=== PATIENT | male | born 1975 | race Two or more races ===

== ENCOUNTER 2025-01-03 03:03 | Inpatient (IN) | payer OTHER ==
[~2025-01-03] VITALS: Ht 193 cm; Wt 108.5 kg
[2025-01-03 04:02] LABS: Urine Bacteria None Seen /hpf (None Seen)
[2025-01-03 04:10] LABS: Urine Blood 1+ /uL (Negative); Urine Clarity Clear (Clear); Urine Color Light-Yellow (Yellow); Urine Protein, UAD Negative (Negative); Urine Specific Gravity 1.013 (1.001-1.035); Urine Squamous Epithelial Cell None Seen /hpf (<5); Urine Urobilinogen Normal (Negative); Urine WBC 1 /HPF (0-3); Urine pH 5.5 (5.0-9.0)
[2025-01-03 04:23] LABS: Chloride 105 mmol/L (98-107); Sodium 138 mmol/L (136-145)
[2025-01-03 04:24] LABS: Anion Gap 9 (5-15); Calcium 9.2 mg/dL (8.7-10.4); Carbon Dioxide 24 mmol/L (20-31)
[2025-01-03 04:29] LABS: Blood Urea Nitrogen 13 mg/dL (9-23)
[2025-01-03] MEDS: ONDANSETRON HCL 4 MG/2 ML VIAL IV ONE ×2 (04:30→14:30)
[2025-01-03 04:39] LABS: Hematocrit 43.5 % (41.0-53.0); Hemoglobin 15.2 g/dL (13.5-17.5); Mean Corpuscular Hemoglobin 29.8 pg (28.0-32.0); Mean Corpuscular Hgb Conc. 34.8 g/dL (32.0-36.0); Mean Corpuscular Volume 85.7 fL (80.0-100.0); Platelet Count (auto) 111 10^3/uL (140-450); Red Blood Cells 5.08 10^6/uL (4.5-5.90); Red Cell Distribution Width 12.7 % (11.8-14.3); White Blood Cell 5.3 10^3/uL (4.4-10.8)
[2025-01-03 04:42] LABS: Basophils % (manual) 0 (0.0-2.0); Blast Cells 0; Eosinophils % (manual) 0 (0-7); Glucose 119 mg/dL (74-106); Metamyelocytes % 0; Monocytes % (manual) 0 (0-12); Myelocytes % 0; Promyelocytes % 0; Reactive Lymphocytes 0
--- NOTE | 2025-01-03 04:43 | ED.PDOC ---
History of Present Illness HPI Comments 49-year-old male presents with for complaint abdominal pain, with associated 1 episode of nausea and vomiting. Patient is a poor historian. He endorses on having pain since yesterday, localized to his upper and right lower quadrant area, and describes it as tight in quality. Patient states on taking ibuprofen and vomiting it, immediately, afterwards prior to arrival. Also endorses on taking a recent would Wegovy injection 4-5 days ago. He denies having any bloody vomitus, diarrhea, constipation, urinary symptoms, fever, chills, further associated symptoms. Chief Complaint: Abdominal Pain Time Seen by MD: 04:25 Reviewed Notes: Nurses Notes, Medications, Allergies Allergies: Coded Allergies: NO KNOWN ALLERGIES (Unverified , 01/03/25) Information Source: Patient, Spouse Mode of Arrival: Ambulatory Severity: Moderate Timing: Days Duration: Since onset Prehospital treatment: None Past Medical History PAST MEDICAL HISTORY: Denies Surgical History: Denies all surgeries Family History Family History: Unknown Social History Smoker: Non-Smoker Alcohol: Denies ETOH Use Drugs: Denies Drug Use Lives In: Home All Other Systems: Reviewed and Negative (Comprehensive review of systems are negative unless otherwise stated in HPI) Physical Exam General Appearance: No Apparent Distress, Normal, Other (Uncomfortable appearing) HEENT: Normal ENT Inspection, Pharynx Normal, TMs Normal Neck: Full Range of Motion, Non-Tender, Normal, Normal Inspection Respiratory: Chest Non-Tender, Lungs Clear, No Accessory Muscle Use, No Respiratory Distress, Normal Breath Sounds Cardiovascular: No Edema, No JVD, No Murmur, No Gallop, Normal Peripheral Pulses, Regular Rate/Rhythm Breast Exam: Deferred Gastrointestinal: No Organomegaly, Non Tender, No Pulsatile Mass, Normal Bowel Sounds, Soft Genitalia: Deferred Pelvic: Deferred Rectal: Deferred Extremities: No calf tenderness, Normal capillary refill, Normal inspection, Normal range of motion, Non-tender, No pedal edema Musculoskeletal : Apperance: Normal Neurologic: Alert, obstetrical tech II-XII nml as Tested, No Motor Deficits, Normal Affect, Normal Mood, No Sensory Deficits Cerebellar Function: Normal Reflexes: Normal Skin: Dry, Normal Color, Warm Lymphatic: No Adenopathy Was a procedure done? Was a procedure done?: No Differential Dx Considerations may include: Gastritis, gastroenteritis, GERD, PUD, appendicitis, diverticulitis, PID, nephrolithiasis, cystitis, viral syndrome, medication adverse effect, among others X-Ray, Labs, Meds, VS Vital Signs Date Time Temp Pulse Resp B/P (MAP) Pulse Ox O2 Delivery O2 Flow Rate FiO2 01/03/25 03:16 99.3 117 16 114/75 (88) 96 99.3 Lab Test 01/03/25 04:04 01/03/25 03:16 Range/Units White Blood Count 5.3 4.4-10.8 10^3/uL Red Blood Count 5.08 4.5-5.90 10^6/uL Hemoglobin 15.2 13.5-17.5 g/dL Hematocrit 43.5 41.0-53.0 % Mean Corpuscular Volume 85.7 80.0-100.0 fL Mean Corpuscular Hemoglobin 29.8 28.0-32.0 pg Mean Corpuscular Hemoglobin Concent 34.8 32.0-36.0 g/dL Red Cell Distribution Width 12.7 11.8-14.3 % Platelet Count 111 L 140-450 10^3/uL Mean Platelet Volume 7.8 6.9-10.8 fL Neutrophils (%) (Auto) 37.0-80.0 % Lymphocytes (%) (Auto) 10.0-50.0 % Monocytes (%) (Auto) 0.0-12.0 % Basophils (%) (Auto) 0.0-2.0 % Neutrophils # (Auto) 1.6-8.6 10 ^3/uL Lymphocytes # (Auto) 0.4-5.4 10 ^3/uL Monocytes # (Auto) 0-1.3 10 ^3/uL Differential Total Cells Counted 100.0 100 Neutrophils % (Manual) 93 H 37.0-80.0 Band Neutrophils % (Manual) 2 Lymphocytes % (Manual) 5 L 10.0-50.0 Monocytes % (Manual) 0 0-12 Eosinophils % (Manual) 0 0-7 Basophils % (Manual) 0 0.0-2.0 Metamyelocytes % (manual) 0 Myelocytes % (Manual) 0 Promyelocytes % (Manual) 0 Blast Cells % (Manual) 0 Reactive Lymphocytes 0 Platelet Estimate Decreased Large Platelets Few Sodium Level 138 136-145 mmol/L Potassium Level 4.0 3.5-5.1 mmol/L Chloride Level 105 98-107 mmol/L Carbon Dioxide Level 24 20-31 mmol/L Anion Gap 9 5-15 Blood Urea Nitrogen 13 9-23 mg/dL Creatinine 1.18 0.700-1.30 mg/dL Glomerular Filtration Rate Calc 75 >90 mL/min BUN/Creatinine Ratio 11.0 10.0-20.0 Serum Glucose 119 H 74-106 mg/dL Calcium Level 9.2 8.7-10.4 mg/dL Urine Color Light-yellow Yellow Urine Clarity Clear Clear Urine pH 5.5 5.0-9.0 Urine Specific [place] 1.013 1.001-1.035 Urine Protein Negative Negative Urine Ketones Negative Negative Urine Blood 1+ H Negative /uL Urine Nitrite Negative Negative Urine Bilirubin Negative Negative Urine Urobilinogen Normal Negative mg/dL Urine Leukocyte Esterase Negative Negative /uL Urine RBC 1 0 - 3 /hpf Urine Microscopic WBC 1 0-3 /HPF Urine Squamous Epithelial Cells None seen <5 /hpf Urine Bacteria None seen None Seen /hpf Urine Glucose Normal Normal mg/dL Time of 1ST Reevaluation: 04:50 Reevaluation 1ST: Unchanged Patient Education/Counseling: Diagnosis, Treatment Family Education/Counseling: Diagnosis, Treatment Additional Information Previous visits reviewed: N/A The following tests were ordered, and results were reviewed by me: CT abdomen and pelvis with IV contrast, manual differential, UA, CBC, BNP Additional Information was gathered from interviewing the following independent historians: Spouse I reviewed and agreed with the following test results read by other providers: CT abdomen and pelvis with IV contrast I discussed treatment and results with medical personnel and: patient, spouse Departure 1 Departure Time of Disposition: 05:42 (Patient presented with abdominal pain that was concerning for possible appendicits, gastritis, cholecystitis, colitis, g astroenteritis, sbo, or orther possible surgical emergency. Data: 1. I ordered and reviewed the result of at least 3 labs including a CBC, BMP, and Urinalysis. 2. I independently interpreted the following tests: CT Abdoment and Pelvis is concerning for acute appendicitis.Risk:This patient has a high risk of morbidity due to further diagnostic testing or treatment and may suffer from an acute abdominal process disorder. Workup reveals acute appendicitis and patient should be admitted for further workup. and possible expert consultation. ) Impression: Primary Impression: Acute appendicitis Qualified Codes: K35.30 - Acute appendicitis with localized peritonitis, without perforation or gangrene Disposition: 09 ADMITTED INPATIENT Admit to: Med Surg Condition: Guarded Critical Care Note Critical Care Time?: Yes Critical care comment: Intractable abdominal pain Authorized and Performed by: Neal Degroot MD Total critical care time: Approximately 44 minutes Due to a high probability of clinically significant, life threatening deterioration, the patient required my highest level of preparedness to intervene emergently and I personally spent this critical care time directly and personally managing the patient. This critical care time included obtaining a history; examining the patient; pulse oximetry; ordering and review of studies; arranging urgent treatment with development of a management plan; evaluation of patient's response to treatment; frequent reassessment; and, discussions with other providers. This critical care time was performed to assess and manage the high probability of imminent, life-threatening deterioration that could result in multi-organ failure. It was exclusive of separately billable procedures and treating other patients and teaching time. Please see my other sections and the rest of the note for further information on patient assessment and treatment. Stability Stability form required: No Heart Score Heart Score: Heart Score Response (Comments) Value History N/A 0 EKG N/A 0 Age N/A 0 Risk Factors N/A 0 Troponin N/A 0 Total 0 I personally scribed for NEAL DEGROOT MD ([email or web address]) on 01/03/25 at 04:43. Electronically submitted by Tomi Rausch ([email or web address]). NEAL DEGROOT MD Jan 03, 2025 04:43
[2025-01-03 05:24] LABS: Band Neutrophils % (manual) 2; Large Platelets FEW; Lymphocytes % (manual) 5 (10.0-50.0); Platelet Estimate Decreased
--- NOTE | 2025-01-03 05:42 | DVH ---
EXAM: CT Abdomen and Pelvis With Intravenous Contrast CLINICAL INDICATION: rlq pain TECHNIQUE: Axial computed tomography images of the abdomen and pelvis with intravenous contrast. Th is CT exam was performed using one or more of the following dose reduction techniques: automated exp osure control, adjustment of the mA and/or kV according to patient size, and/or use of iterative zbigniew nstruction technique. CONTRAST: RADIATION DOSE: CTDIvol = 20.19 mGy, DLP = 1396.96 mGy-cm COMPARISON: None FINDINGS: LUNG BASES: Unremarkable. No mass. No consolidation. ABDOMEN: LIVER: Hepatomegaly with fatty infiltration. GALLBLADDER AND BILE DUCTS: Unremarkable. No calcified stones. No ductal dilation. PANCREAS: Unremarkable. No mass. No ductal dilation. SPLEEN: Unremarkable. No splenomegaly. ADRENALS: Unremarkable. No mass. KIDNEYS AND URETERS: Unremarkable. No solid mass. No hydronephrosis. STOMACH AND BOWEL: Unremarkable. No obstruction. No mucosal thickening. PELVIS: APPENDIX: Mucosal thickening in the appendix with surrounding inflammation. Appendix measures 1.5 cm in diameter. BLADDER: Unremarkable. No mass. REPRODUCTIVE: Unremarkable as visualized. ABDOMEN and PELVIS: INTRAPERITONEAL SPACE: Unremarkable. No free air. No significant fluid collection. BONES/JOINTS: No acute fracture. No dislocation. SOFT TISSUES: Unremarkable. VASCULATURE: Unremarkable. No abdominal aortic aneurysm. LYMPH NODES: Unremarkable. No enlarged lymph nodes. OTHER FINDINGS: . . IMPRESSION: 1. Mucosal thickening in the appendix with surrounding inflammation. Appendix measures 1.5 cm in di ameter. Findings are consistent with acute appendicitis. No rupture. 2. Hepatomegaly with fatty infiltration. Findings were discussed with Dr. Rivers by phone on 01/30/2025 at 3:40 p.m..
[2025-01-03] MEDS: SODIUM CHLORIDE 0.9% 1,000 ML IV ONE ×3 (06:49→09:33)
[2025-01-03] MEDS: IOHEXOL 300 MG/ML 100ML BOTTLE IJ ONE (06:50)
[2025-01-03 07:35] VITALS: PULSE 102; RESP 14; O2SAT 96
[2025-01-03] MEDS ORDERED: DOCUSATE SOD 100 MG CAP PO PRN (08:00)
[2025-01-03] MEDS ORDERED: ONDANSETRON HCL 4 MG/2 ML VIAL IV PRN (08:00)
[2025-01-03] MEDS ORDERED: HYDROcodone-ACET 5/325MG TAB PO PRN (08:00)
[2025-01-03] MEDS ORDERED: ACETAMINOPHEN 325 MG TAB PO PRN ×2 (08:00→08:15)
[2025-01-03] MEDS ORDERED: MORPHINE SULFATE INJ 2 MG/ml SYRG IV PRN ×2 (08:00→08:15)
[2025-01-03] MEDS ORDERED: TADA5TAB16 PO (08:05)
[2025-01-03] MEDS ORDERED: SEMA1.7I SC (08:05)
--- NOTE | 2025-01-03 08:07 | DVHHP2 ---
History of Present Illness Reason for Visit: Abdominal pain History of Present Illness Alonzo Grace is a [id number] with no significant past medical history, who came in for abdominal pain. Patient states his abdominal pain began yesterday, and he thought it would go away. Then this morning about 0200 he was awoken with severe RLQ pain, fever, chills, and vomited. States he vomited when walking to his car to come to the hospital. States he last ate yesterday about 2022. Past Surgical History: Total knee replacement (left) Smoke: No ALCOHOL: none Drugs: None Lives: with Family Domestic Violence: Neg Review of Systems Constitutional: Yes: Fever, Chills; No: Sweats, Weakness, Malaise, Other Eyes: No: Pain, Vision change, Conjunctivae inflammation, Eyelid inflammation, Other, Redness ENT: No: Ear pain, Ear discharge, Nose pain, Nose discharge, Nose congestion, Mouth pain, Mouth swelling, Throat pain, Throat swelling, Other Respiratory: No: Cough, Dry, Shortness of breath, SOB with excertion, Wheezing, Hemoptysis, Pleuritic Pain, Sputum, Wheezing, Other Cardiovascular: No: Chest Pain, Palpitations, Orthopnea, Paroxysmal Noc. Dyspnea, Edema, Lt Headedness, Other Gastrointestinal: Nausea, Vomiting, Abdominal Pain (RLQ); No: Diarrhea, Constipation, Melena, Hematochezia, Other Genitourinary: No Dysuria, No Frequency, No Incontinence, No Hematuria, No Retention, No Other Musculoskeletal: No: other, neck pain, shoulder pain, arm pain, back pain, hand pain, leg pain, foot pain Skin: No: Rash, Lesions, Jaundice, Bruising, Other Neurological: No: Weakness, Numbness, Incoordination, Change in speech, Confusion, Seizures, Other Allergies: Coded Allergies: NO KNOWN ALLERGIES (Unverified , 01/03/25) Medications Current Medications Medications Dose Ordered Sig/Rachel Route Start Time Stop Time Status Last Admin Dose Admin Acetaminophen/ Hydrocodone Bitart 1 tab Q4HP PRN PO 01/03/25 08:00 UNV Ondansetron HCl 4 mg Q4HP PRN IV 01/03/25 08:00 UNV Docusate Sodium 100 mg BIDPRN PRN PO 01/03/25 08:00 UNV Acetaminophen 650 mg Q6HP PRN PO 01/03/25 08:00 UNV Morphine Sulfate 2 mg Q4HPRN PRN IV 01/03/25 08:00 UNV Metronidazole 100 ml @ 100 mls/hr Q8HR IV 01/03/25 14:00 UNV Cefazolin Sodium 50 ml @ 100 mls/hr Q8HR IV 01/03/25 14:00 UNV Exam Vital Signs Vital Signs Date Time Temp Pulse Resp B/P (MAP) Pulse Ox O2 Delivery O2 Flow Rate FiO2 01/03/25 06:40 97.8 122 20 94/59 (71) 98 97.8 01/03/25 06:40 Room Air General Appearance: Alert, Oriented X3, Cooperative, mild distress HEENT: Atraumatic, PERRLA Respiratory: Clear to auscultation, Normal air movement Cardiovascular: Normal S1, Normal S2, Other (ST) Abdominal: Normal bowel sounds, Soft, Other (RLQ pain) Extremities: No clubbing, No cyanosis, No edema, Normal pulses, No tenderness/swelling Skin: No rashes, No breakdown, No significant lesion Neuro: Normal gait, Normal speech, Strength at 5/5 X4 ext, Normal tone Psych/Mental Status: Mental status NL, Mood NL Labs/Xrays Labs Test 01/03/25 04:04 01/03/25 03:16 Range/Units White Blood Count 5.3 4.4-10.8 10^3/uL Red Blood Count 5.08 4.5-5.90 10^6/uL Hemoglobin 15.2 13.5-17.5 g/dL Hematocrit 43.5 41.0-53.0 % Mean Corpuscular Volume 85.7 80.0-100.0 fL Mean Corpuscular Hemoglobin 29.8 28.0-32.0 pg Mean Corpuscular Hemoglobin Concent 34.8 32.0-36.0 g/dL Red Cell Distribution Width 12.7 11.8-14.3 % Platelet Count 111 L 140-450 10^3/uL Mean Platelet Volume 7.8 6.9-10.8 fL Neutrophils (%) (Auto) 37.0-80.0 % Lymphocytes (%) (Auto) 10.0-50.0 % Monocytes (%) (Auto) 0.0-12.0 % Basophils (%) (Auto) 0.0-2.0 % Neutrophils # (Auto) 1.6-8.6 10 ^3/uL Lymphocytes # (Auto) 0.4-5.4 10 ^3/uL Monocytes # (Auto) 0-1.3 10 ^3/uL Differential Total Cells Counted 100.0 100 Neutrophils % (Manual) 93 H 37.0-80.0 Band Neutrophils % (Manual) 2 Lymphocytes % (Manual) 5 L 10.0-50.0 Monocytes % (Manual) 0 0-12 Eosinophils % (Manual) 0 0-7 Basophils % (Manual) 0 0.0-2.0 Metamyelocytes % (manual) 0 Myelocytes % (Manual) 0 Promyelocytes % (Manual) 0 Blast Cells % (Manual) 0 Reactive Lymphocytes 0 Platelet Estimate Decreased Large Platelets Few Sodium Level 138 136-145 mmol/L Potassium Level 4.0 3.5-5.1 mmol/L Chloride Level 105 98-107 mmol/L Carbon Dioxide Level 24 20-31 mmol/L Anion Gap 9 5-15 Blood Urea Nitrogen 13 9-23 mg/dL Creatinine 1.18 0.700-1.30 mg/dL Glomerular Filtration Rate Calc 75 >90 mL/min BUN/Creatinine Ratio 11.0 10.0-20.0 Serum Glucose 119 H 74-106 mg/dL Calcium Level 9.2 8.7-10.4 mg/dL Urine Color Light-yellow Yellow Urine Clarity Clear Clear Urine pH 5.5 5.0-9.0 Urine Specific [place] 1.013 1.001-1.035 Urine Protein Negative Negative Urine Ketones Negative Negative Urine Blood 1+ H Negative /uL Urine Nitrite Negative Negative Urine Bilirubin Negative Negative Urine Urobilinogen Normal Negative mg/dL Urine Leukocyte Esterase Negative Negative /uL Urine RBC 1 0 - 3 /hpf Urine Microscopic WBC 1 0-3 /HPF Urine Squamous Epithelial Cells None seen <5 /hpf Urine Bacteria None seen None Seen /hpf Urine Glucose Normal Normal mg/dL EXAM: XY CHEST TWO VIEWS ROUTINE FINDINGS: Lines and Tubes: None Lungs: No focal consolidation. Pleura: No effusion. No pneumothorax. Cardiomediastinal contours: Unremarkable Bones: No acute osseous abnormality. IMPRESSION: No acute cardiopulmonary disease. EXAM: CT Abdomen and Pelvis With Intravenous Contrast FINDINGS: LUNG BASES: Unremarkable. No mass. No consolidation. ABDOMEN: LIVER: Hepatomegaly with fatty infiltration. GALLBLADDER AND BILE DUCTS: Unremarkable. No calcified stones. No ductal dilation. PANCREAS: Unremarkable. No mass. No ductal dilation. SPLEEN: Unremarkable. No splenomegaly. ADRENALS: Unremarkable. No mass. KIDNEYS AND URETERS: Unremarkable. No solid mass. No hydronephrosis. STOMACH AND BOWEL: Unremarkable. No obstruction. No mucosal thickening. PELVIS: APPENDIX: Mucosal thickening in the appendix with surrounding inflammation. Appendix measures 1.5 cm in diameter. BLADDER: Unremarkable. No mass. REPRODUCTIVE: Unremarkable as visualized. ABDOMEN and PELVIS: INTRAPERITONEAL SPACE: Unremarkable. No free air. No significant fluid collection. BONES/JOINTS: No acute fracture. No dislocation. SOFT TISSUES: Unremarkable. VASCULATURE: Unremarkable. No abdominal aortic aneurysm. LYMPH NODES: Unremarkable. No enlarged lymph nodes. OTHER FINDINGS: . . IMPRESSION: 1. Mucosal thickening in the appendix with surrounding inflammation. Appendix measures 1.5 cm in diameter. Findings are consistent with acute appendicitis. No rupture. 2. Hepatomegaly with fatty infiltration. Assessment/Plan Assessment/Plan Assessment: Acute appendicitis, SIRS, Hyperglycemia, Plan: Admit to Med-Surg, Surgical consult, NPO, Chest X-ray, PT/PTT, IV hydration, IV antibiotics, EKG, Plan discussed with: Patient, Spouse My Orders Orders - JOSE ALEJANDRO WATTERS Procedure Category Date Status Time * Surgical Consult CONS 01/03/25 Transmitted 07:59 Admit ADMIT 01/03/25 Transmitted 07:59 Code Status CODE 01/03/25 Transmitted 07:59 Hydrocodone-Acet PHA 01/03/25 Logged 5/325mg Tab ([place] 08:00 Ondansetron Hcl PHA 01/03/25 Logged (Zofran) 08:00 Docusate Sodium PHA 01/03/25 Logged Capsule ([place] 08:00 Complete Blood Count LAB 01/04/25 Verified 04:00 Comprehensive LAB 01/04/25 Verified Metabolic Panel 04:00 Npo (Nothing By DIET 01/03/25 Transmitted Mouth) Diet Breakfast Condition: Critical YOSELIN 01/03/25 In Process 07:59 Acetaminophen Tablet PHA 01/03/25 Logged (Tylenol Tablet) 08:00 Morphine Sulfate PHA 01/03/25 Logged Injection 08:00 PTPTT LAB 01/03/25 Logged 07:59 Chest Two Views XY 01/03/25 Logged Routine 07:59 Electrocardigram EKG 01/03/25 Logged 07:59 Metronidazole PHA 01/03/25 Logged 500mg/100ml (Flagyl 14:00 Cefazolin 1gm/50ml PHA 01/03/25 Logged (Ancef) 14:00 Sodium Chloride 0.9% PHA 01/03/25 Logged 08:15 Date of Service: Jan 03, 2025 Billing Provider: JOSE ALEJANDRO WATTERS Common Visit Codes: [id number] INP/OBS CARE (MOD) JOSE ALEJANDRO WATTERS Jan 03, 2025 08:07
[2025-01-03] MEDS ORDERED: SODIUM CHLORIDE 0.9% 1,000 ML IV ONE (08:15)
[2025-01-03 08:27] LABS: INR 1.06 (0.9-1.15); Partial Thromboplastin Time 22.8 SEC (24.5-34.5); Prothrombin Time 11.2 sec (9.3-11.8)
--- NOTE | 2025-01-03 08:39 | DVH ---
EXAM: XY CHEST TWO VIEWS ROUTINE CLINICAL HISTORY: pain COMPARISON: None TECHNIQUE: Frontal and lateral view of the chest was obtained FINDINGS: Lines and Tubes: None Lungs: No focal consolidation. Pleura: No effusion. No pneumothorax. Cardiomediastinal contours: Unremarkable Bones: No acute osseous abnormality. IMPRESSION: No acute cardiopulmonary disease.
[2025-01-03] MEDS: metroNIDAZOLE 500MG/100ML 100 ML IV ONE ×2 (08:58→14:40)
[2025-01-03] MEDS: MORPHINE SULFATE 4 MG/ML SYR/VIAL IV ONE ×2 (10:44)
[2025-01-03] MEDS: ceFAZolin 2 GM/D5W50ml 50 ML IV ONE ×2 (10:45→14:17)
--- NOTE | 2025-01-03 13:12 | DVHPN2 ---
Subjective Patient was NPO, right lower quadrant pain continues. Reviewed: H&P Changes from previous H/P or p: No Changes General: Per HPI Eyes: No Pain, No Vision change, No Conjunctivae inflammation, No Eyelid inflammation, No Other, No Redness ENT: No Ear pain, No Ear discharge, No Nose pain, No Nose discharge, No Nose congestion, No Mouth pain, No Mouth swelling, No Throat pain, No Throat swelling, No Other Cardiovascular: No Chest Pain, No Palpitations, No Orthopnea, No Paroxysmal Noc. Dyspnea, No Edema, No Lt Headedness, No Other Respiratory: No Cough, No Dry, No Shortness of breath, No SOB with excertion, No Wheezing, No Hemoptysis, No Pleuritic Pain, No Sputum, No Other Gastrointestinal: Nausea, Vomiting, Abdominal Pain (RLQ); No Diarrhea, No Constipation, No Melena, No Hematochezia, No Other Genitourinary: No Dysuria, No Frequency, No Incontinence, No Hematuria, No Retention, No Other Musculoskeletal: No other, No neck pain, No shoulder pain, No arm pain, No back pain, No hand pain, No leg pain, No foot pain Skin: No Rash, No Lesions, No Jaundice, No Bruising, No Other Objective Vitals Vital Signs Date Time Temp Pulse Resp B/P (MAP) Pulse Ox O2 Delivery O2 Flow Rate FiO2 01/03/25 12:02 98.8 100 21 99/57 (71) 96 98.8 01/03/25 07:35 Room Air* 0 21 Exam GEN: Healthy appearing, well-developed, NAD. HEENT: NC/AT; MMM. CV: RRR, no m/r/g. LUNGS: CTAB, no w/r/c. ABD: Tender to palpation epigastrium and right lower quadrant, hypoactive/absent bowel sounds. EXT: skin Warm, well perfused. no rashes. No clubbing, cyanosis, or edema. NEURO: Ambulating with no limitations. No focal deficits. Medications Current Medications Medications Dose Ordered Sig/Rachel Route Start Time Stop Time Status Last Admin Dose Admin Ondansetron HCl 4 mg Q4HP PRN IV 01/03/25 08:15 Morphine Sulfate 2 mg Q4HPRN PRN IV 01/03/25 08:15 Metronidazole 100 ml @ 100 mls/hr Q8HR IV 01/03/25 14:00 Cefazolin Sodium 50 ml @ 100 mls/hr Q8HR IV 01/03/25 14:00 Acetaminophen/ Hydrocodone Bitart 1 tab Q4HP PRN PO 01/03/25 08:15 Docusate Sodium 100 mg BIDPRN PRN PO 01/03/25 08:15 Acetaminophen 650 mg Q6HP PRN PO 01/03/25 08:15 Laboratory Results Laboratory Tests 01/03/25 04:04 Chemistry Test 01/03/25 04:04 Calcium Level 9.2 mg/dL (8.7-10.4) Coagulation Test 01/03/25 04:04 Prothrombin Time 11.2 sec (9.3-11.8) Prothrombin Time INR 1.06 (0.9-1.15) Activated Partial Thromboplast Time 22.8 SEC (24.5-34.5) L Urinalysis Test 01/03/25 03:16 Urine Color Light-yellow (Yellow) Urine Clarity Clear (Clear) Urine pH 5.5 (5.0-9.0) Urine Specific [place] 1.013 (1.001-1.035) Urine Protein Negative (Negative) Urine Ketones Negative (Negative) Urine Blood 1+ /uL (Negative) H Urine Nitrite Negative (Negative) Urine Bilirubin Negative (Negative) Urine Urobilinogen Normal mg/dL (Negative) Urine Leukocyte Esterase Negative /uL (Negative) Urine RBC 1 /hpf (0 - 3) Urine Microscopic WBC 1 /HPF (0-3) Urine Squamous Epithelial Cells None seen /hpf (<5) Urine Bacteria None seen /hpf (None Seen) Urine Glucose Normal mg/dL (Normal) Labs and/or images reviewed: Labs reviewed by me, Image(s) reviewed by me Assessment/Plan Assessment/Plan Patient drove down to in an prior yesterday. On upon driving back he has worsening abdominal pain with chills. Abdominal pain was epigastric radiating to right lower quadrant. He tried to go to sleep but the abdominal pain woke him up. On his way to ER he had large volume emesis. Nonbloody nonbilious. On exam he has tenderness with absent bowel sounds. Tenderness more right lower quadrant than epigastrium. CT abdomen pelvis showing signs of appendicitis. Surgery consulted. Started on IV antibiotics Ancef. NPO. sepsis due to below acute appendicitis Hepatomegaly with fatty infiltration neutrophilia tachycardia tachypnea - in ancef/ metronidazole - npo - surgical eval - surgery aware. - ivf for maintainance NPO dvt ppx - scd , padau low gi ppx - ppi iv qday tele full code Plan discussed with: Patient Date of Service: Jan 03, 2025 Billing Provider: DESHAWN DIETZ MD Common Visit Codes: [id number] INP/OBS CARE(HIGH) DESHAWN DIETZ MD Jan 03, 2025 13:12
--- NOTE | 2025-01-03 13:29 | DVHINCON2 ---
Consultation - Surgical Date Seen: Jan 03, 2025 Referring Physician Referring Physician ER Reason for Consultation APPENDICITIS History of Present Illness History of Present Illness 49m w 1d h/o migratory rlq sunshine, nausea and anorexia. +fevers and chills Past Medical/Surgical History Past Medical/Surgical History PMHx none Surg Hx no abd surg Family and Social History Family and Social History noncontributory family no drugs alcohol or tob Allergies and medications Allergies: Coded Allergies: NO KNOWN ALLERGIES (Unverified , 01/03/25) Home Meds Reported Medications Semaglutide (Wegovy) 1.7 Mg/0.75 Ml Inj, 1.7 MG SC QWEEKLY 01/03/25 Tadalafil (Tadalafil) 5 Mg Tab, 1 TAB PO DAILY 01/03/25 Review of systems Review of Systems: HEENT:Normal, CVS:Normal, RESPIRATORY:Normal, GI:Abnormal (abd pain, nausea), :Normal, MSK:Normal, NEURO:Normal Examination Vital signs Vital Signs Date Time Temp Pulse Resp B/P (MAP) Pulse Ox O2 Delivery O2 Flow Rate FiO2 01/03/25 12:02 98.8 100 21 99/57 (71) 96 98.8 01/03/25 07:35 Room Air* 0 21 Medications Current Medications Medications (Trade) Dose Ordered Sig/Rachel Route PRN Reason Start Time Stop Time Status Last Admin Acetaminophen/ Hydrocodone Bitart ([place] 5/325MG Tab) 1 tab Q4HP PRN PO MODERATE PAIN (4-6 PAIN SCALE) 01/03/25 08:00 01/03/25 08:19 DC Ondansetron HCl (Zofran) 4 mg Q4HP PRN IV NAUSEA / VOMITING 01/03/25 08:00 01/03/25 08:19 DC Docusate Sodium (Colace Capsule) 100 mg BIDPRN PRN PO FOR CONSTIPATION 01/03/25 08:00 01/03/25 08:19 DC Acetaminophen (Tylenol Tablet) 650 mg Q6HP PRN PO PAIN SCALE 1-3 OR TEMP>100.4 01/03/25 08:00 01/03/25 08:19 DC Morphine Sulfate 2 mg Q4HPRN PRN IV SEVERE PAIN (7-10 PAIN SCALE) 01/03/25 08:00 01/03/25 08:19 DC Metronidazole 100 ml @ 100 mls/hr Q8HR IV 01/03/25 14:00 01/03/25 08:19 DC Cefazolin Sodium 50 ml @ 100 mls/hr Q8HR IV 01/03/25 14:00 01/03/25 08:19 DC Ondansetron HCl (Zofran) 4 mg Q4HP PRN IV NAUSEA / VOMITING 01/03/25 08:15 Morphine Sulfate 2 mg Q4HPRN PRN IV SEVERE PAIN (7-10 PAIN SCALE) 01/03/25 08:15 Metronidazole 100 ml @ 100 mls/hr Q8HR IV 01/03/25 14:00 Cefazolin Sodium 50 ml @ 100 mls/hr Q8HR IV 01/03/25 14:00 Acetaminophen/ Hydrocodone Bitart ([place] 5/325MG Tab) 1 tab Q4HP PRN PO MODERATE PAIN (4-6 PAIN SCALE) 01/03/25 08:15 Docusate Sodium (Colace Capsule) 100 mg BIDPRN PRN PO FOR CONSTIPATION 01/03/25 08:15 Acetaminophen (Tylenol Tablet) 650 mg Q6HP PRN PO PAIN SCALE 1-3 OR TEMP>100.4 01/03/25 08:15 Laboratory Labs Test 01/03/25 04:04 01/03/25 03:16 Range/Units White Blood Count 5.3 4.4-10.8 10^3/uL Red Blood Count 5.08 4.5-5.90 10^6/uL Hemoglobin 15.2 13.5-17.5 g/dL Hematocrit 43.5 41.0-53.0 % Mean Corpuscular Volume 85.7 80.0-100.0 fL Mean Corpuscular Hemoglobin 29.8 28.0-32.0 pg Mean Corpuscular Hemoglobin Concent 34.8 32.0-36.0 g/dL Red Cell Distribution Width 12.7 11.8-14.3 % Platelet Count 111 L 140-450 10^3/uL Mean Platelet Volume 7.8 6.9-10.8 fL Neutrophils (%) (Auto) 37.0-80.0 % Lymphocytes (%) (Auto) 10.0-50.0 % Monocytes (%) (Auto) 0.0-12.0 % Basophils (%) (Auto) 0.0-2.0 % Neutrophils # (Auto) 1.6-8.6 10 ^3/uL Lymphocytes # (Auto) 0.4-5.4 10 ^3/uL Monocytes # (Auto) 0-1.3 10 ^3/uL Differential Total Cells Counted 100.0 100 Neutrophils % (Manual) 93 H 37.0-80.0 Band Neutrophils % (Manual) 2 Lymphocytes % (Manual) 5 L 10.0-50.0 Monocytes % (Manual) 0 0-12 Eosinophils % (Manual) 0 0-7 Basophils % (Manual) 0 0.0-2.0 Metamyelocytes % (manual) 0 Myelocytes % (Manual) 0 Promyelocytes % (Manual) 0 Blast Cells % (Manual) 0 Reactive Lymphocytes 0 Platelet Estimate Decreased Large Platelets Few Prothrombin Time 11.2 9.3-11.8 sec Prothrombin Time INR 1.06 0.9-1.15 Activated Partial Thromboplast Time 22.8 L 24.5-34.5 SEC Sodium Level 138 136-145 mmol/L Potassium Level 4.0 3.5-5.1 mmol/L Chloride Level 105 98-107 mmol/L Carbon Dioxide Level 24 20-31 mmol/L Anion Gap 9 5-15 Blood Urea Nitrogen 13 9-23 mg/dL Creatinine 1.18 0.700-1.30 mg/dL Glomerular Filtration Rate Calc 75 >90 mL/min BUN/Creatinine Ratio 11.0 10.0-20.0 Serum Glucose 119 H 74-106 mg/dL Calcium Level 9.2 8.7-10.4 mg/dL Urine Color Light-yellow Yellow Urine Clarity Clear Clear Urine pH 5.5 5.0-9.0 Urine Specific [place] 1.013 1.001-1.035 Urine Protein Negative Negative Urine Ketones Negative Negative Urine Blood 1+ H Negative /uL Urine Nitrite Negative Negative Urine Bilirubin Negative Negative Urine Urobilinogen Normal Negative mg/dL Urine Leukocyte Esterase Negative Negative /uL Urine RBC 1 0 - 3 /hpf Urine Microscopic WBC 1 0-3 /HPF Urine Squamous Epithelial Cells None seen <5 /hpf Urine Bacteria None seen None Seen /hpf Urine Glucose Normal Normal mg/dL Examination: GENERAL:Normal, HEENT:Normal, NECK:Normal, LUNGS:Normal, CVS:Normal, ABDOMEN:Normal (rlq ttp, no be no guarding soft nd), MSK:Normal, SKIN:Normal, NEURO:Normal Problem List/Assessment/Plan Problems: (1) Acute appendicitis Assessment and Plan 49m w rlq abd pain nausea and anorexia acute appendicitis OR for lap appy npo abx analgesics prn vte ppx Plan discussed with Plan discussed with: Patient Visit Coding Surgery Date of Service if different f: Jan 03, 2025 Billing Provider: ZO CHANG MD Surgery Visit Codes: 50628 - INP CONSULT <55 MIN ZO CHANG MD Jan 03, 2025 13:29
[2025-01-03] MEDS ORDERED: ceFAZolin 1GM/50ML 50 ML IV SCH (14:00)
[2025-01-03] MEDS ORDERED: metroNIDAZOLE 500MG/100ML 100 ML IV SCH ×2 (14:00)
[2025-01-03] MEDS ORDERED: fentaNYL CITRATE 100 MCG/2 ML VL ONE (14:09)
[2025-01-03] MEDS ORDERED: MIDAZOLAM HCL 2MG/2ML 2ml VIAL (1mg/ml) ONE (14:09)
[2025-01-03] MEDS ORDERED: PROPOFOL 10 MG/ML 20 ML IV ONE (14:10)
[2025-01-03] MEDS: METOCLOPRAMIDE HCL 5MG/ml INJ 2ml VIAL IV ONE (14:30)
[2025-01-03] MEDS ORDERED: HYDROmorphone HCL 2 MG/ML VL/or syr IV PRN (14:30)
[2025-01-03] MEDS: KETOROLAC TROMETH 30 MG/ML 1ML VIAL IV ONE (14:30)
[2025-01-03] MEDS ORDERED: hydrALAZINE HCL 20 MG/ML VL IV PRN (14:30)
--- NOTE | 2025-01-03 14:30 | DVHPN2 ---
Progress Note Date Seen: Jan 03, 2025 Medical Necessity Reason Pt with a Central, PICC or Fol: No Objective vital signs Vital Sign Date Time Temp Pulse Resp B/P (MAP) Pulse Ox O2 Delivery O2 Flow Rate FiO2 01/03/25 12:02 98.8 100 21 99/57 (71) 96 98.8 01/03/25 07:35 Room Air* 0 21 medications Current Medications Medications Dose Ordered Sig/Rachel Route Start Time Stop Time Status Last Admin Dose Admin Ondansetron HCl 4 mg Q4HP PRN IV 01/03/25 08:15 Morphine Sulfate 2 mg Q4HPRN PRN IV 01/03/25 08:15 Metronidazole 100 ml @ 100 mls/hr Q8HR IV 01/03/25 14:00 Cefazolin Sodium 50 ml @ 100 mls/hr Q8HR IV 01/03/25 14:00 Acetaminophen/ Hydrocodone Bitart 1 tab Q4HP PRN PO 01/03/25 08:15 Docusate Sodium 100 mg BIDPRN PRN PO 01/03/25 08:15 Acetaminophen 650 mg Q6HP PRN PO 01/03/25 08:15 laboratory and microbiology Laboratory Tests 01/03/25 04:04 Test 01/03/25 04:04 Range/Units Serum Glucose 119 H 74-106 mg/dL Problem List/Assessment/Plan Problem List/Assessment/Plan 01/03/25 49 year old male with abdominal pain which started in epigastrium and migrated to right lower quadrant, now pain in right side, no appetite ,some nausea. has tender right lower quadrant with rebound tenderness. positive Rovsing and obturator signs elevated Neutrophil count, positive CT scan. will proceed with appendectomy, risks and complications and the procedure itself were explained to him and his son at bedside. Plan discussed with: Patient, Son RUTH SPRINGER MD Jan 03, 2025 14:30
[2025-01-03] MEDS ORDERED: ONDANSETRON HCL 4 MG/2 ML VIAL ONE (14:39)
[2025-01-03] MEDS ORDERED: SUGAMMADEX 200mg/2ml Vial (100MG/ML) IV ONE (14:48)
[2025-01-03] MEDS ORDERED: HYDROmorphone HCL 2 MG/ML VL/or syr ONE (14:49)
[2025-01-03] MEDS: BACITRACIN TOP OINT 1 UD PKG TOP ONE (14:52)
[2025-01-03] MEDS: POVIDONE IODINE 10 % TOPICAL OINT 30GM TOP ONE (14:54)
[2025-01-03 15:03] VITALS: O2SAT 100
--- NOTE | 2025-01-03 15:31 | DVHOP ---
DATE OF SURGERY: 01/03/2025 PREOPERATIVE DIAGNOSIS: Appendicitis. POSTOPERATIVE DIAGNOSIS: Appendicitis. SURGEON: Ho Cloud MD ANESTHESIA: General endotracheal, Valente Portillo. PROCEDURES: * Laparoscopy. * Laparoscopic appendectomy. DESCRIPTION OF PROCEDURE: Under adequate anesthesia with the patient's skin prepped and draped, supraumbilical incision was made and Veress needle inserted by the hanging drop technique in order to establish pneumoperitoneum to 15 mmHg pressure by insufflation with carbon dioxide. With the abdomen fully distended, the needle was removed and replaced with a 5 mm trocar port through which a 0-degree viewing laparoscope was inserted and under direct vision, additional 5 and 10 mm ports inserted through the abdominal wall at the mid abdomen and the suprapubic skin respectively. Instrumentation was introduced and laparoscopy was performed. There was no evidence of any unexpected pathology at the serosal surfaces visualized. The appendix was acutely inflamed. It was ante-cecum in position. It was placed on tension by grabbing it with a Regine forcep and lifting it into the anterior abdominal compartment. The appendix was traced to its confluence with the cecum. The base of the appendix at the confluence with the cecum was crossclamped and divided utilizing an Endo FREDA stapler equipped with vascular joni. The entire appendix and the mesoappendix thus being transected were removed from the peritoneal cavity by placement in a specimen extraction bag and removing the bag through the 10 mm port site. The right lower quadrant was then profusely irrigated. Irrigant was aspirated. Hemostasis was meticulously inspected and found to be complete. At the termination of procedure, there was no evidence of bleeding from either the port sites or from the appendectomy site. The instrumentation was withdrawn. Pneumoperitoneum was evacuated. Fascial defect was closed using 0 Vicryl. Metallic skin joni used for approximation of skin edges. The patient remained stable throughout the procedure, left the operating room following an accurate needle and sponge count. MD DONNY Ramos/LUNA TID: [id number] RECEIPT: [id number]
[2025-01-03] MEDS: D5W/SOD CHL 0.45%/KCL 20MEQ 1,000 ML IV SCH (15:57)
[2025-01-03] MEDS: ceFAZolin 1GM/50ML 50 ML IV SCH (16:13)
[2025-01-03 17:55] VITALS: PULSE 88; RESP 17; O2SAT 96
[2025-01-03 19:00] VITALS: BP 108/69; PULSE 17; TEMP 98.5; O2SAT 95
[2025-01-03 20:00] VITALS: PULSE 88; RESP 16
[2025-01-03] MEDS: HYDROcodone-ACET 5/325MG TAB PO PRN (20:37)
[2025-01-03 20:51] VITALS: BP 108/71; PULSE 16; TEMP 97; O2SAT 96
[2025-01-03] MEDS: ceFAZolin 2 GM/D5W50ml 50 ML IV SCH (23:13)
[2025-01-04] VITALS (7 sets, daily range): BP systolic 103–143; BP diastolic 62–95; PULSE 69–79; RESP 16–18; TEMP 97.4–98.7; O2SAT 96–98
[2025-01-04] MEDS: metroNIDAZOLE 500MG/100ML 100 ML IV SCH (00:19)
[2025-01-04] MEDS: ONDANSETRON HCL 4 MG/2 ML VIAL IV PRN (00:48)
[2025-01-04] MEDS: HYDROmorphone HCL 2 MG/ML VL/or syr IV ONE (00:51)
[2025-01-04 06:37] LABS: Alanine Aminotransferase 15 U/L (7-40); Alkaline Phosphatase 66 U/L (46-116); Anion Gap 9 (5-15); Blood Urea Nitrogen 12 mg/dL (9-23); Calcium 8.8 mg/dL (8.7-10.4); Carbon Dioxide 26 mmol/L (20-31); Chloride 105 mmol/L (98-107); Potassium 4.4 mmol/L (3.5-5.1); Sodium 140 mmol/L (136-145); Total Protein 6.1 g/dL (5.7-8.2)
[2025-01-04 06:38] LABS: Albumin 3.9 g/dL (3.2-4.8); Aspartate Aminotransferase 13 U/L (13-40)
[2025-01-04 06:42] LABS: Glucose 119 mg/dL (74-106)
[2025-01-04 06:43] LABS: Basophils # (auto) 0 10 ^3/uL (0-0.2); Basophils % (auto) 0.1 % (0.0-2.0); Eosinophils # (auto) 0 10 ^3/uL (0-0.8); Hematocrit 39.6 % (41.0-53.0); Hemoglobin 13.7 g/dL (13.5-17.5); Lymphocytes # (auto) 0.3 10 ^3/uL (0.4-5.4); Lymphocytes % (auto) 2.7 % (10.0-50.0); Mean Corpuscular Hemoglobin 29.8 pg (28.0-32.0); Mean Corpuscular Hgb Conc. 34.5 g/dL (32.0-36.0); Mean Corpuscular Volume 86.5 fL (80.0-100.0); Monocytes # (auto) 0.4 10 ^3/uL (0-1.3); Monocytes % (auto) 3.6 % (0.0-12.0); Neutrophils # (auto) 11.2 10 ^3/uL (1.6-8.6); Neutrophils % (auto) 93.6 % (37.0-80.0); Nucleated Red Blood Cells % 0.3 %; Platelet Count (auto) 105 10^3/uL (140-450); Red Blood Cells 4.58 10^6/uL (4.5-5.90); Red Cell Distribution Width 12.9 % (11.8-14.3)
--- NOTE | 2025-01-04 07:30 | ECG ---
[facility] Test Date: 2025-01-03 Test Time: 14:05:44 Pat Name: ELVIRA HOLLIDAY Department: ER Room: 0297 A Gender: M [employer]mal Cutting Machine Operator: JONEL : 1975 Requested By: JOSE ALEJANDRO WATTERS Order Number: [id number] Reading MD: Claudio Peñaloza Measurements Intervals [place] Rate: 99 P: 50 PA: 127 QRS: 56 QRSD: 110 T: 39 QT: 360 QTc: 462 Interpretive Statements Sinus rhythm Electronically Signed On 01-04-2025 14:59:11 PDT by Claudio Peñaloza Please click the below link to view image of tracing.
[2025-01-04] MEDS: cefTRIAXone 1GM/50ML D5W 50 ML IV ONE (11:31)
--- NOTE | 2025-01-04 14:29 | DVHPN2 ---
Subjective Date Seen: Jan 04, 2025 Post op day Post op day: 1 Patient reports: No new complaints Nursing reports: No new complaints General: Normal HNT: Normal Cardiovascular: Normal Respiratory: Normal Gastrointestinal: Normal Genitourinary: Normal Musculoskeletal: Normal Neurological: Normal Objective Vitals Vital Sign Date Time Temp Pulse Resp B/P (MAP) Pulse Ox O2 Delivery O2 Flow Rate FiO2 01/04/25 12:40 97.7 79 17 119/78 (92) 98 97.7 01/04/25 08:00 Room Air* 0 21 Total Intake and Output 01/03/25 01/03/25 01/04/25 15:00 23:00 07:00 Intake Total 150 ml 200 ml 125 ml Output Total 1425 ml Balance 150 ml 200 ml -1300 ml Medications Current Medications Medications Dose Ordered Sig/Rachel Route Start Time Stop Time Status Last Admin Dose Admin Ondansetron HCl 4 mg Q4HP PRN IV 01/03/25 08:15 01/04/25 00:48 4 MG Morphine Sulfate 2 mg Q4HPRN PRN IV 01/03/25 08:15 Acetaminophen/ Hydrocodone Bitart 1 tab Q4HP PRN PO 01/03/25 08:15 01/04/25 06:50 1 TAB Docusate Sodium 100 mg BIDPRN PRN PO 01/03/25 08:15 Acetaminophen 650 mg Q6HP PRN PO 01/03/25 08:15 Potassium Chloride/Dextrose/ Sod Cl 1,000 ml @ 120 mls/hr Q8H20M IV 01/03/25 15:00 01/03/25 23:20 120 MLS/HR Metronidazole 100 ml @ 100 mls/hr Q8HR IV 01/03/25 22:00 01/04/25 13:29 100 MLS/HR Ceftriaxone Sodium 50 ml @ 100 mls/hr DAILY@09 IV 01/05/25 09:00 General: Normal Head/Eyes: Normal ENT: Normal Neck: Normal Lungs: Normal Cardiovascular: Normal Abdominal: Normal, Soft Musculoskeletal: Normal Extremities: Normal Labs and Microbiology Laboratory Tests 01/04/25 05:45 Test 01/04/25 05:45 Range/Units Serum Glucose 119 H 74-106 mg/dL Ass/Plan Labs and/or images reviewed: Labs reviewed by me, Image(s) reviewed by me Problem List 6/3/25 49 year old male with abdominal pain which started in epigastrium and migrated to right lower quadrant, now pain in right side, no appetite ,some nausea. has tender right lower quadrant with rebound tenderness. positive Rovsing and obturator signs elevated Neutrophil count, positive CT scan. will proceed with appendectomy, risks and complications and the procedure itself were explained to him and his son at bedside. Problems(with codes): (1) Acute appendicitis Assessment/Plan no new complaints, abdomen soft, appropriately tender tolerating diet, labs ok , passing gas wound clean dry and intact Plan: clear for discharge with pain medication and antibiotics may shower in 72 hours follow up in surgery clinic in 7-10 days Prognosis: Good Plan discussed with patient, Dr. Cloud Visit Coding Surgery Date of Service if different f: Jan 04, 2025 Billing Provider: RUTH CLOUD MD Surgery Visit Codes: [id number] INP/OBS CARE(HIGH) LALITHA MACEDO NP Jan 04, 2025 14:29
--- NOTE | 2025-01-04 14:42 | DVHPN2 ---
Subjective s/p lap appy. improving. Reviewed: H&P Changes from previous H/P or p: No Changes General: Per HPI Eyes: No Pain, No Vision change, No Conjunctivae inflammation, No Eyelid inflammation, No Other, No Redness ENT: No Ear pain, No Ear discharge, No Nose pain, No Nose discharge, No Nose congestion, No Mouth pain, No Mouth swelling, No Throat pain, No Throat swelling, No Other Cardiovascular: No Chest Pain, No Palpitations, No Orthopnea, No Paroxysmal Noc. Dyspnea, No Edema, No Lt Headedness, No Other Respiratory: No Cough, No Dry, No Shortness of breath, No SOB with excertion, No Wheezing, No Hemoptysis, No Pleuritic Pain, No Sputum, No Other Gastrointestinal: Nausea, Vomiting, Abdominal Pain (RLQ); No Diarrhea, No Constipation, No Melena, No Hematochezia, No Other Genitourinary: No Dysuria, No Frequency, No Incontinence, No Hematuria, No Retention, No Other Musculoskeletal: No other, No neck pain, No shoulder pain, No arm pain, No back pain, No hand pain, No leg pain, No foot pain Skin: No Rash, No Lesions, No Jaundice, No Bruising, No Other Objective Vitals Vital Signs Date Time Temp Pulse Resp B/P (MAP) Pulse Ox O2 Delivery O2 Flow Rate FiO2 01/04/25 12:40 97.7 79 17 119/78 (92) 98 97.7 01/04/25 08:00 Room Air* 0 21 Intake/Output Intake and Output 01/04/25 07:00 Intake Total 475 ml Output Total 1425 ml Balance -950 ml Intake Oral 325 ml IV Total 150 ml Output Urine Total 1425 ml Exam GEN: Healthy appearing, well-developed, NAD. HEENT: NC/AT; MMM. CV: RRR, no m/r/g. LUNGS: CTAB, no w/r/c. ABD: Tender to palpation epigastrium and right lower quadrant, hypoactive/absent bowel sounds. EXT: skin Warm, well perfused. no rashes. No clubbing, cyanosis, or edema. NEURO: Ambulating with no limitations. No focal deficits. Medications Current Medications Medications Dose Ordered Sig/Rachel Route Start Time Stop Time Status Last Admin Dose Admin Ondansetron HCl 4 mg Q4HP PRN IV 01/03/25 08:15 01/04/25 00:48 4 MG Morphine Sulfate 2 mg Q4HPRN PRN IV 01/03/25 08:15 Acetaminophen/ Hydrocodone Bitart 1 tab Q4HP PRN PO 01/03/25 08:15 01/04/25 06:50 1 TAB Docusate Sodium 100 mg BIDPRN PRN PO 01/03/25 08:15 Acetaminophen 650 mg Q6HP PRN PO 01/03/25 08:15 Potassium Chloride/Dextrose/ Sod Cl 1,000 ml @ 120 mls/hr Q8H20M IV 01/03/25 15:00 01/03/25 23:20 120 MLS/HR Metronidazole 100 ml @ 100 mls/hr Q8HR IV 01/03/25 22:00 01/04/25 13:29 100 MLS/HR Ceftriaxone Sodium 50 ml @ 100 mls/hr DAILY@09 IV 01/05/25 09:00 Laboratory Results Laboratory Tests 01/04/25 05:45 Chemistry Test 01/04/25 05:45 Albumin 3.9 g/dL (3.2-4.8) Calcium Level 8.8 mg/dL (8.7-10.4) Total Protein 6.1 g/dL (5.7-8.2) LFT Test 01/04/25 05:45 Alanine Aminotransferase (ALT) 15 U/L (7-40) Alkaline Phosphatase 66 U/L (46-116) Aspartate Amino Transferase (AST) 13 U/L (13-40) Total Bilirubin 1.0 mg/dL (0.2-1.0) Urinalysis Test 01/03/25 03:16 Urine Color Light-yellow (Yellow) Urine Clarity Clear (Clear) Urine pH 5.5 (5.0-9.0) Urine Specific [place] 1.013 (1.001-1.035) Urine Protein Negative (Negative) Urine Ketones Negative (Negative) Urine Blood 1+ /uL (Negative) H Urine Nitrite Negative (Negative) Urine Bilirubin Negative (Negative) Urine Urobilinogen Normal mg/dL (Negative) Urine Leukocyte Esterase Negative /uL (Negative) Urine RBC 1 /hpf (0 - 3) Urine Microscopic WBC 1 /HPF (0-3) Urine Squamous Epithelial Cells None seen /hpf (<5) Urine Bacteria None seen /hpf (None Seen) Urine Glucose Normal mg/dL (Normal) Labs and/or images reviewed: Labs reviewed by me, Image(s) reviewed by me Assessment/Plan Assessment/Plan 01/03 - Patient drove down to in an prior yesterday. On upon driving back he has worsening abdominal pain with chills. Abdominal pain was epigastric radiating to right lower quadrant. He tried to go to sleep but the abdominal pain woke him up. On his way to ER he had large volume emesis. Nonbloody nonbilious. On exam he has tenderness with absent bowel sounds. Tenderness more right lower quadrant than epigastrium. CT abdomen pelvis showing signs of appendicitis. Surgery consulted. Started on IV antibiotics Ancef. NPO. 01/04 status post lap appendectomy today. Healing well. Postop day 0. We will continue to monitor. Surgery following. Continue IV antibiotics. Advance diet. We will continue to monitor today overnight. Change antibiotics to ceftriaxone/metronidazole for complete coverage. sepsis due to below acute appendicitis Status post lap appendectomy 01/04/2025 Hepatomegaly with fatty infiltration neutrophilia tachycardia tachypnea - in ctx/metronidazole - FLD - surgical eval - surgery aware. s/p lap appy - ivf for maintainance FLD dvt ppx - scd , padau low gi ppx - ppi iv qday tele full code Plan discussed with: Patient My Orders Orders - DESHAWN DIETZ MD Procedure Category Date Status Time Ceftriaxone 1gm/50ml PHA 01/05/25 In Process D5w (Rocephin) 09:00 Date of Service: Jan 04, 2025 Billing Provider: DESHAWN DIETZ MD Common Visit Codes: [id number] INP/OBS CARE(HIGH) DESHAWN DIETZ MD Jan 04, 2025 14:42
[2025-01-05 05:00] VITALS: BP 117/85; PULSE 75; RESP 18; TEMP 97.4; O2SAT 98
[2025-01-05 06:56] LABS: Basophils # (auto) 0 10 ^3/uL (0-0.2); Basophils % (auto) 0.6 % (0.0-2.0); Eosinophils # (auto) 0.1 10 ^3/uL (0-0.8); Eosinophils % (auto) 1.9 % (0.0-7.0); Hematocrit 39.4 % (41.0-53.0); Hemoglobin 13.7 g/dL (13.5-17.5); Lymphocytes % (auto) 16.9 % (10.0-50.0); Mean Corpuscular Hgb Conc. 34.9 g/dL (32.0-36.0); Mean Corpuscular Volume 85.9 fL (80.0-100.0); Monocytes # (auto) 0.5 10 ^3/uL (0-1.3); Monocytes % (auto) 8.2 % (0.0-12.0); Neutrophils # (auto) 4.3 10 ^3/uL (1.6-8.6); Neutrophils % (auto) 72.4 % (37.0-80.0); Nucleated Red Blood Cells % 0.1 %; Platelet Count (auto) 98 10^3/uL (140-450); Red Blood Cells 4.58 10^6/uL (4.5-5.90); Red Cell Distribution Width 13.1 % (11.8-14.3); White Blood Cell 5.9 10^3/uL (4.4-10.8)
[2025-01-05 07:24] LABS: Alanine Aminotransferase 14 U/L (7-40); Albumin 3.8 g/dL (3.2-4.8); Alkaline Phosphatase 61 U/L (46-116); Anion Gap 6 (5-15); Blood Urea Nitrogen 11 mg/dL (9-23); Calcium 8.8 mg/dL (8.7-10.4); Carbon Dioxide 28 mmol/L (20-31); Glucose 93 mg/dL (74-106); Potassium 3.9 mmol/L (3.5-5.1); Sodium 141 mmol/L (136-145)
[2025-01-05 07:25] LABS: Bilirubin, Total 0.6 mg/dL (0.2-1.0)
[2025-01-05 07:32] LABS: Aspartate Aminotransferase 12 U/L (13-40); Chloride 107 mmol/L (98-107)
[2025-01-05 08:00] VITALS: RESP 18
[2025-01-05] MEDS ORDERED: ZOFR4T PO (08:29)
[2025-01-05] MEDS ORDERED: AUG875T PO (08:29)
--- NOTE | 2025-01-05 08:34 | DVHDS2 ---
Discharge Summary Date of Admission Jan 03, 2025 at 07:59 Date of Discharge: Jan 05, 2025 Labs/Diagnostic Data: Laboratory Results Test 01/05/25 06:39 01/03/25 04:04 01/03/25 03:16 White Blood Count 5.9 10^3/uL (4.4-10.8) Red Blood Count 4.58 10^6/uL (4.5-5.90) Hemoglobin 13.7 g/dL (13.5-17.5) Hematocrit 39.4 % (41.0-53.0) Mean Corpuscular Volume 85.9 fL (80.0-100.0) Mean Corpuscular Hemoglobin 30.0 pg (28.0-32.0) Mean Corpuscular Hemoglobin Concent 34.9 g/dL (32.0-36.0) Red Cell Distribution Width 13.1 % (11.8-14.3) Platelet Count 98 10^3/uL (140-450) Mean Platelet Volume 8.1 fL (6.9-10.8) Neutrophils (%) (Auto) 72.4 % (37.0-80.0) Lymphocytes (%) (Auto) 16.9 % (10.0-50.0) Monocytes (%) (Auto) 8.2 % (0.0-12.0) Eosinophils (%) (Auto) 1.9 % (0.0-7.0) Basophils (%) (Auto) 0.6 % (0.0-2.0) Neutrophils # (Auto) 4.3 10 ^3/uL (1.6-8.6) Lymphocytes # (Auto) 1.0 10 ^3/uL (0.4-5.4) Monocytes # (Auto) 0.5 10 ^3/uL (0-1.3) Eosinophils # (Auto) 0.1 10 ^3/uL (0-0.8) Basophils # (Auto) 0 10 ^3/uL (0-0.2) Nucleated Red Blood Cells 0.1 % Sodium Level 141 mmol/L (136-145) Potassium Level 3.9 mmol/L (3.5-5.1) Chloride Level 107 mmol/L (98-107) Carbon Dioxide Level 28 mmol/L (20-31) Anion Gap 6 (5-15) Blood Urea Nitrogen 11 mg/dL (9-23) Creatinine 1.10 mg/dL (0.700-1.30) Glomerular Filtration Rate Calc 81 mL/min (>90) BUN/Creatinine Ratio 10.0 (10.0-20.0) Serum Glucose 93 mg/dL (74-106) Calcium Level 8.8 mg/dL (8.7-10.4) Total Bilirubin 0.6 mg/dL (0.2-1.0) Aspartate Amino Transferase (AST) 12 U/L (13-40) Alanine Aminotransferase (ALT) 14 U/L (7-40) Alkaline Phosphatase 61 U/L (46-116) Total Protein 6.0 g/dL (5.7-8.2) Albumin 3.8 g/dL (3.2-4.8) Differential Total Cells Counted 100.0 (100) Neutrophils % (Manual) 93 (37.0-80.0) Band Neutrophils % (Manual) 2 Lymphocytes % (Manual) 5 (10.0-50.0) Monocytes % (Manual) 0 (0-12) Eosinophils % (Manual) 0 (0-7) Basophils % (Manual) 0 (0.0-2.0) Metamyelocytes % (manual) 0 Myelocytes % (Manual) 0 Promyelocytes % (Manual) 0 Blast Cells % (Manual) 0 Reactive Lymphocytes 0 Platelet Estimate Decreased Large Platelets Few Prothrombin Time 11.2 sec (9.3-11.8) Prothrombin Time INR 1.06 (0.9-1.15) Activated Partial Thromboplast Time 22.8 SEC (24.5-34.5) Urine Color Light-yellow (Yellow) Urine Clarity Clear (Clear) Urine pH 5.5 (5.0-9.0) Urine Specific [place] 1.013 (1.001-1.035) Urine Protein Negative (Negative) Urine Ketones Negative (Negative) Urine Blood 1+ /uL (Negative) Urine Nitrite Negative (Negative) Urine Bilirubin Negative (Negative) Urine Urobilinogen Normal mg/dL (Negative) Urine Leukocyte Esterase Negative /uL (Negative) Urine RBC 1 /hpf (0 - 3) Urine Microscopic WBC 1 /HPF (0-3) Urine Squamous Epithelial Cells None seen /hpf (<5) Urine Bacteria None seen /hpf (None Seen) Urine Glucose Normal mg/dL (Normal) Other Laboratory Tests 01/05/25 06:39 Brief Hx & Hospital Course: 01/03 - Patient drove down to in an prior yesterday. On upon driving back he has worsening abdominal pain with chills. Abdominal pain was epigastric radiating to right lower quadrant. He tried to go to sleep but the abdominal pain woke him up. On his way to ER he had large volume emesis. Nonbloody nonbilious. On exam he has tenderness with absent bowel sounds. Tenderness more right lower quadrant than epigastrium. CT abdomen pelvis showing signs of appendicitis. Surgery consulted. Started on IV antibiotics Ancef. NPO. 01/04 status post lap appendectomy today. Healing well. Postop day 0. We will continue to monitor. Surgery following. Continue IV antibiotics. Advance diet. We will continue to monitor today overnight. Change antibiotics to ceftriaxone/metronidazole for complete coverage. 01/05 olerating po, gas passed , ambulatory. ready for discharge as cleared by surgery . plan below. diagnosis: sepsis due to below acute appendicitis intract abdominal pain resolved intract nausea vomit resovled. Status post lap appendectomy 01/04/2025 Hepatomegaly with fatty infiltration neutrophilia leukocytosis tachycardia tachypnea plan: -augmentin 875mg 2x/day for x5 days - zofran as needed for nausea - OTC tyelnol and ibuprofen for pain - FLD x1 week (full liquid diet) - followup with PCP and surgery - continue other home medications not mentioned above. Condition at Discharge: Fair Final Diagnosis/Problems List sepsis due to below acute appendicitis Status post lap appendectomy 01/04/2025 Hepatomegaly with fatty infiltration neutrophilia leukocytosis tachycardia tachypnea Discharge Disposition: Home Discharge Instruct/Medications Diet: See Comment Diet comment: - FLD x1 week (full liquid diet Activity: No Restrictions, As Tolerated Follow Up/Referral: pcp, surgery Medications: below Discharge Statement: "Patient was advised to return to the ER or call 911 if any headaches, dizziness, shortness of breath, chest pain, abdominal pain, bleeding, fevers, or worsening of medical condition. Patient was counseled about treatment plan, medications, possible side effects, patientverbalized understanding. All questions were answered to the best of my ability. This discharge took greater then 30 minutes in planning, reviewing documentation, counseling the patient, and discussing with other team members." ASSESSMENT ASSESSMENT Assessment sepsis due to below acute appendicitis Status post lap appendectomy 01/04/2025 Hepatomegaly with fatty infiltration neutrophilia leukocytosis tachycardia tachypnea Date of Service: Jan 05, 2025 Billing Provider: DESHAWN DIETZ MD Common Visit Codes: [id number]-IHD/OBS DISCH DAY >30min DESHAWN DIETZ MD Jan 05, 2025 08:34
[2025-01-05 08:37] VITALS: TEMP 36.3
[2025-01-05] MEDS: cefTRIAXone 1GM/50ML D5W 50 ML IV SCH (08:50)
[2025-01-05] MEDS: DOCUSATE SOD 100 MG CAP PO PRN (08:50)
[2025-01-05 09:00] VITALS: BP 123/78; PULSE 81; RESP 18; TEMP 98; O2SAT 97
== END 2025-01-05 10:55 | disposition home or self-care (01) | DRG 855 ==
LOC: ER 03:11 → OVERFLOW 07:59 → ER 08:01 → WEST WING 17:54
PROVIDERS: ADMIT Student in an Organized Health Care Education/Training Program; ATTEND Student in an Organized Health Care Education/Training Program
PROC: 0DTJ4ZZ Resection of Appendix, Percutaneous Endoscopic Approach (ICD-10-PCS; principal; 2025-01-03 14:28)
DX: A41.9 Sepsis, unspecified organism (principal); R73.9 Hyperglycemia, unspecified; K76.0 Fatty (change of) liver, not elsewhere classified; K37 Unspecified appendicitis; Z96.652 Presence of left artificial knee joint; Z79.899 Other long term (current) drug therapy
CPT/HCPCS: 36415; 71046; 74177; 80048; 80053; 81001; 85007; 85025; 85027; 85610; 85730; 93005; 96365; 99291; G0378; J2250; J2405; J2704; J3490